=== PATIENT | male | born 1945 | race Caucasian/White ===

== ENCOUNTER 2019-07-09 04:16 | Emergency (ER) | payer MEDICARE ==
--- NOTE | 2019-07-09 04:55 | PHYS DOC ---
Past History Past Medical History: Cancer Adult General Chief Complaint Chief Complaint: ".. He woke me up... indicated.. he could not breath.. and he needed suction... He just got that trache in... when he had Thryoid cancer surgery.. That was .. at ... but he went out... I called ambulance.. and he never came around.. " HPI HPI Patient is a 74 year old male who presents with history of cardiopulmonary arrest. History of thyroid cancer obstructing his airway and underwent surgery with trach placement at . He has had problems with increased secretions and plugging of the tracheostomy. Patient emergency call was at 3:03 AM , arrival of first responders and then paramedics approximately [phone]. CPR started for CODE BLUE status.. Patient received compressions, I/O fluids and drugs however never had return of pulse. Trachea was cleared of plugging and was effectively ventilated by bag Trach. per paramedics. Patient received 10 doses of epinephrine with no return of pulse.. Patient was noted to have occasional electrical activity but no pulse. No contractions cardiac contractions by US at bed side. Pt. has followed with Dr. Cross in past. Recent treated at for Thyroid cancer. Patient's most recent medical issue are anaplastic thyroid carcinoma, dysphagia, hyperlipidemia, hypertension, lung mass, postoperative hypothyroidism, tracheal obstruction requiring tracheostomy, and diabetes. Patient's doctor at are Dr. Len Biggs and Dr. Joaquín Nunes. Messages left with electrical and instrumentation mechanic for theses services of Pt. . Time of 4:21 hrs. See code sheet. Review of Systems Review of Systems Multiple medical issues in past year per . Family History Family History Not currently available Current Medications Current Medications See nursing for home meds Allergies Allergies See nursing Physical Exam Physical Exam Constitutional:Morbid in appearance. [] HENT: Normocephalic, Trach. recent placement , , bilateral external ears normal, oropharynx moist, no oral exudates, nose normal. [] Eyes: Eyes fixed and dilated. Neck: Recent trach. - Ventilated easily with Bag -trach. Cardiovascular:Pulses only with compressions. No pulses with out compressions. No cardiac contraction by bedside US. Lungs & Thorax: Bilateral breath sounds equal at axillary with Bag Trach. ventilations Abdomen: No bowel sounds. Distended. Obese. Scar. Skin: Cold, pale and cyanotic. Back: No obvious injury. Extremities: ankle edema. []IO right Tibia. EKG EKG [] Radiology/Procedures Radiology/Procedures [] Course & Med Decision Making Course & Med Decision Making Pertinent Labs and Imaging studies reviewed. (See chart for details) Prolong Code resuscitation with compressions and ventilations. Paramedics advised 10 cycles with application of 10 Amp. of epinephrine. Code called at 421. Notifications to primary electrical and instrumentation mechanic Dr. King. Notification to doctors - electrical and instrumentation mechanic via burrer operator., Impression: 1. Cardiopulmonary Arrest [] Dragon Disclaimer Dragon Disclaimer This electronic medical record was generated, in whole or in part, using a voice recognition dictation system. Departure Departure: Disposition: 01 HOME/RESIDENCE PRIOR TO ADM Condition: STABLE Dragon Disclaimer This chart was dictated in whole or in part using Voice Recognition software in a busy, high-work load, and often noisy Emergency Department environment. It may contain unintended and wholly unrecognized errors or omissions. KOBI JONES MD Jul 09, 2019 04:55
== END 2019-07-09 08:25 | disposition expired ==
LOC: ER 04:17
DX: I46.9 Cardiac arrest, cause unspecified (principal); E78.5 Hyperlipidemia, unspecified; I10 Essential (primary) hypertension; E89.0 Postprocedural hypothyroidism; E11.9 Type 2 diabetes mellitus without complications; Z85.850 Personal history of malignant neoplasm of thyroid
CPT/HCPCS: 92950; 99285-25